=== PATIENT | male | born 1960 | race Caucasian/White ===

== ENCOUNTER → 2016-08-06 | Outpatient (CLI) | payer BC ==
[~2016-08-06] MED LIST: CATHETER FLUSH 10 ML SYR IV PRN; CLAR500T8 PO; IOHEXOL 350 MG/ML 100 ML (OMNIPAQUE 350) VIAL IV ONE; LOSA50TA6 PO; MTF500T PO; NS 100 ML (IVPB) BAG IV ONE
[2016-08-06 12:09] LABS: BASOPHILS # (AUTO) 0.1 10^3/uL (0.0-0.1); BASOPHILS % (AUTO) 2 % (0-10); EOSINOPHILS # (AUTO) 0.2 10^3/uL (0.0-0.3); EOSINOPHILS % (AUTO) 2 % (0-10); LYMPHOCYTES # (AUTO) 2.7 X 10^3 (1.0-4.0); LYMPHOCYTES % (AUTO) 33 % (12-44); MEAN CORPUSCULAR HEMOGLOBIN 30 PG (25-34); MEAN CORPUSCULAR HGB CONC 34 G/DL (32-36); MEAN CORPUSCULAR VOLUME 90 FL (80-99); MEAN PLATELET VOLUME 10.4 FL (7.4-10.4); MONOCYTES # (AUTO) 0.5 X 10^3 (0.0-1.0); MONOCYTES % (AUTO) 7 % (0-12); NEUTROPHILS # (AUTO) 4.6 X 10^3 (1.8-7.8); NEUTROPHILS % (AUTO) 57 % (42-75); PLATELET COUNT 255 10^3/uL (130-400); RED BLOOD COUNT 4.81 10^6/uL (4.35-5.85); RED CELL DISTRIBUTION WIDTH 13.1 % (10.0-14.5); WHITE BLOOD COUNT 8.1 10^3/uL (4.3-11.0)
[2016-08-06 12:27] LABS: ALANINE AMINOTRANSFERASE 32 U/L (0-55); ALBUMIN 4.3 G/DL (3.2-4.5); ANION GAP 9 MMOL/L (5-14); ASPARTATE AMINO TRANSFERASE 50 U/L (5-34); BILIRUBIN,TOTAL 0.5 MG/DL (0.1-1.0); BLOOD UREA NITROGEN 15 MG/DL (7-18); BUN/CREATININE RATIO 15; CARBON DIOXIDE 21 MMOL/L (21-32); CHLORIDE 108 MMOL/L (98-107); GFR ESTIMATED > 60; GLUCOSE 121 MG/DL (70-105); SODIUM 138 MMOL/L (135-145); TOTAL PROTEIN 6.9 G/DL (6.4-8.2)
--- NOTE | 2016-08-06 13:09 | Diagnostic Imaging Report ---
PROCEDURE: CT abdomen and pelvis with contrast. TECHNIQUE: Multiple contiguous axial images were obtained through the abdomen and pelvis after administration of intravenous contrast. INDICATION: Left-sided abdominal pain. Bloating. 100 mL of Omnipaque 350 is administered intravenously. FINDINGS: The lung bases demonstrate minimal atelectasis. The liver demonstrate diffuse steatosis. The gallbladder, the spleen, the pancreas, and adrenal glands appear unremarkable. The kidneys have symmetric enhancement and contrast excretion. There is no hydronephrosis. There is no free fluid or fluid collection in the abdomen or pelvis. There is moderate amounts of fecal material in the colon. Slightly prominent amount of a luminal fluid seen in the small bowel without significant fold or wall thickening, however. This could be normal versus mild enteritis related. The appendix is normal. The abdominal aorta is normal in caliber. No para-aortic significantly enlarged lymph node is seen. The osseous structures demonstrate degenerative changes in the hip joints and anterior and posterior fusion changes at the L4/L5 level. IMPRESSION: 1. Moderate amounts of fecal material in the colon. 2. Prominent amount of luminal fluid within small bowel loops without dilatation or wall thickening. In the appropriate clinical setting, this may correlate with mild enteritis. Dictated by: Dictated on workstation # [id number]
== END ==
LOC: RAD 11:41
PROVIDERS: ATTEND Family Medicine
DX: R10.32 Left lower quadrant pain (principal); K59.00 Constipation, unspecified
CPT/HCPCS: 36415; 74177; 80053; 85025

== ENCOUNTER → 2017-03-13 | Outpatient (CLI) | payer BC ==
[~2017-03-13] MED LIST changes: -CATHETER FLUSH 10 ML SYR IV PRN; -IOHEXOL 350 MG/ML 100 ML (OMNIPAQUE 350) VIAL IV ONE; -NS 100 ML (IVPB) BAG IV ONE
--- NOTE | 2017-03-13 09:46 | Diagnostic Imaging Report ---
CLINICAL INDICATION: Patient with neck pain and headaches x1 month. Patient has left arm pain off and on with history of symptoms 1 and 1/2-2 years. EXAM: MRI of the cervical spine performed without IV contrast. Sequences include sagittal T2, sagittal T1, sagittal STIR, sagittal T2 fat-sat, and axial T2. COMPARISON: MRI of the cervical spine dated 05/23/2015. FINDINGS: There are interval postop changes to the cervical spine with placement of C6-C7 anterior cervical interbody fusion. There is no fluid collection or MRI evidence of complication seen. Limited visualization of the posterior fossa is unremarkable. Cervical spinal cord has normal cord caliber and signal. There is no acute cervical spine fracture. There is slight high T2 signal involving the C5-C6, C6-C7, and C7-T1 endplate regions suspected to represent Modic type I degenerative signal changes, there may also be a component of hardware artifact. Otherwise, cervical spine shows no significant abnormal signal. There are cervical spine degenerative spurs and facet arthropathy seen. There is no significant paraspinal soft tissue abnormality. C1-C2: Unremarkable. C2-C3: Unremarkable. C3-C4: Stable small left paracentral/subarticular disc spur which causes stable moderate to severe left narrowing. There is no significant central spinal canal or right neural foramen narrowing. C4-C5: Unremarkable. C5-C6: There is stable grade 1 retrolisthesis of C5 on C6. There is a diffuse disc bulge with stable hypertrophic disc spurs seen posteriorly and bilateral uncinate spurs. There is stable mild ligamentum flavum buckling and bilateral facet arthropathy. There is stable severe central canal narrowing. There is stable at least moderate right neural foramen narrowing and severe left neural foramen narrowing. C6-C7: There are interval postop changes with treatment of the previously seen diffuse disc bulge with posterior disc herniation. There is also decrease in the ligamentum flavum buckling. There is minimal posterior vertebral body prominence and minimal ligamentum flavum buckling. There is moderate central canal narrowing which has improved compared to the prior study where severe narrowing was previously seen. There is stable severe bilateral neural foramen narrowing. C7-T1: Unremarkable. IMPRESSION: 1: Interval postop changes with C6-C7 anterior cervical disc fusion with decreased central canal narrowing, treatment of the previously seen disc herniation, and decreased ligamentum flavum buckling. There continues to be moderate central canal narrowing due to posterior vertebral body prominence and mild ligamentum flavum buckling. There is stable severe bilateral neural foramen narrowing. 2: There is stable severe C5-C6 central spinal canal narrowing, grade 1 retrolisthesis of C5 on C6 and moderate right neural foramen narrowing and severe left neural foramen narrowing. 3: Stable small C3-C4 left paracentral/subarticular disc spur which causes moderate to severe left neural foramen narrowing. Dictated by: Dictated on workstation # [id number]
== END ==
LOC: RAD 08:40
PROVIDERS: ATTEND Physician Assistant
DX: M48.02 Spinal stenosis, cervical region (principal); M43.12 Spondylolisthesis, cervical region; M54.81 Occipital neuralgia; Z98.1 Arthrodesis status
CPT/HCPCS: 72141

== ENCOUNTER 2017-06-06 12:15 | Outpatient (CLI) | payer MEDICARE, OTHER ==
[~2017-06-06] VITALS: Ht 177.8 cm; Wt 90.7 kg
[2017-06-06] MEDS ORDERED: DEXAMETHASONE 10 MG/ML (DECADRON) 1 ML VIAL ONE (12:19)
[2017-06-06 12:28] VITALS: BP 144/92
[2017-06-06 12:41] VITALS: BP 143/87
== END 2017-06-06 12:45 ==
LOC: CARD 12:15
PROVIDERS: ATTEND Pain Medicine Interventional Pain Medicine
DX: M54.12 Radiculopathy, cervical region (principal); I10 Essential (primary) hypertension; E11.9 Type 2 diabetes mellitus without complications; Z79.84 Long term (current) use of oral hypoglycemic drugs; Z79.899 Other long term (current) drug therapy
CPT/HCPCS: 62321

== ENCOUNTER → 2017-08-01 | Outpatient (CLI) | payer MEDICARE, OTHER ==
[~2017-08-01] VITALS: Ht 177.8 cm; Wt 90.7 kg
[~2017-08-01] MED LIST changes: +DEXAMETHASONE 10 MG/ML (DECADRON) 1 ML VIAL ONE
[2017-08-01 13:27] VITALS: BP 146/80
[2017-08-01 13:52] VITALS: BP 124/87
--- NOTE | 2017-08-01 18:20 | OPERATIVE REPORT ---
DATE OF SERVICE: 08/01/2017 DIAGNOSIS: Cervical radiculopathy. PROCEDURE: Fluoroscopic guided interlaminar epidural steroid injection. C7-T1 epidural steroid injection. PROCEDURE IN DETAIL: After obtaining informed consent from the patient, the patient's chart was reviewed. The patient was then brought to the procedure room and placed in the prone position. A timeout was performed. The back was prepped with antiseptic solution and under fluoro guidance, the patient's lumbar spine was identified at the level of C7-T1. The C7-T1 vertebra was identified with fluoro guidance and approximately 2 mL of 1.5% lidocaine solution was used to anesthetize the skin directly down to the pedicle of the C7-T1 and under fluoroscopic guidance, the tract was anesthetized up to the interlaminar space and the ligamentum flavum. This needle was withdrawn. Then, a 20-gauge 3.5 inch Tuohy needle was then directed following the same tract that was anesthetized with the spinal needle. Using loss of resistance, the epidural space was identified and then the syringe was switched for contrast solution which was injected, approximately 1 mL. After secondary confirmation of epidural access, another syringe was placed and 80 mg of Depo-Medrol was injected. The Tuohy needle was then flushed out with approximately 2 mL of the normal saline used from the loss of resistance syringe. Band-Aids were applied to all the procedure sites. The patient tolerated the procedure well and was taken to the recovery room in stable condition. COMPLICATIONS: None. Job ID: [id number] DocumentID: [id number] Dictated Date: 08/01/2017 14:04:18 Forestry Foreman Date: 08/01/2017 18:19:52 Dictated By: SHEY CAVAZOS DO
== END ==
LOC: CARD 12:39
PROVIDERS: ATTEND Pain Medicine Interventional Pain Medicine
DX: M54.81 Occipital neuralgia (principal)
CPT/HCPCS: 62321

== ENCOUNTER → 2019-03-14 | Outpatient (CLI) | payer MEDICARE ==
[~2019-03-14] MED LIST changes: -DEXAMETHASONE 10 MG/ML (DECADRON) 1 ML VIAL ONE
[2019-03-14 07:24] LABS: BASOPHILS # (AUTO) 0.1 10^3/uL (0.0-0.1); BASOPHILS % (AUTO) 2 % (0-10); EOSINOPHILS # (AUTO) 0.2 10^3/uL (0.0-0.3); EOSINOPHILS % (AUTO) 3 % (0-10); HEMATOCRIT 42 % (40-54); HEMOGLOBIN 14.5 G/DL (13.3-17.7); LYMPHOCYTES % (AUTO) 43 % (12-44); MEAN CORPUSCULAR HEMOGLOBIN 30 PG (25-34); MEAN CORPUSCULAR HGB CONC 34 G/DL (32-36); MEAN CORPUSCULAR VOLUME 87 FL (80-99); MEAN PLATELET VOLUME 9.8 FL (7.4-10.4); MONOCYTES # (AUTO) 0.4 X 10^3 (0.0-1.0); MONOCYTES % (AUTO) 5 % (0-12); NEUTROPHILS # (AUTO) 3.3 X 10^3 (1.8-7.8); NEUTROPHILS % (AUTO) 48 % (42-75); PLATELET COUNT 256 10^3/uL (130-400)
[2019-03-14 07:56] LABS: ALANINE AMINOTRANSFERASE 9 U/L (0-55); ALBUMIN 4.2 GM/DL (3.2-4.5); ALKALINE PHOSPHATASE 88 U/L (40-136); BILIRUBIN,TOTAL 0.4 MG/DL (0.1-1.0); BUN/CREATININE RATIO 16; CALCIUM 8.8 MG/DL (8.5-10.1); CARBON DIOXIDE 20 MMOL/L (21-32); CHLORIDE 109 MMOL/L (98-107); CHOLESTEROL 146 MG/DL (< 200); CREATININE SERUM 0.98 MG/DL (0.60-1.30); GFR ESTIMATED > 60; GLUCOSE 139 MG/DL (70-105); HDL CHOLESTEROL 52 MG/DL (40-60); SODIUM 140 MMOL/L (135-145); TRIGLYCERIDES 157 MG/DL (<150); VLDL CHOLESTEROL 31 MG/DL (5-40)
== END ==
LOC: LAB 07:03
PROVIDERS: ATTEND Family Medicine
DX: E11.9 Type 2 diabetes mellitus without complications (principal); E78.5 Hyperlipidemia, unspecified; I10 Essential (primary) hypertension; R53.83 Other fatigue
CPT/HCPCS: 36415; 80053; 80061; 83036; 85025

== ENCOUNTER → 2019-12-25 | Outpatient (CLI) | payer MEDICARE ==
[2019-12-25 06:57] LABS: BASOPHILS # (AUTO) 0.2 10^3/uL (0.0-0.1); BASOPHILS % (AUTO) 2 % (0-10); EOSINOPHILS # (AUTO) 0.3 10^3/uL (0.0-0.3); EOSINOPHILS % (AUTO) 3 % (0-10); HEMATOCRIT 46 % (40-54); HEMOGLOBIN 15.1 g/dL (13.3-17.7); LYMPHOCYTES # (AUTO) 3.2 10^3/uL (1.0-4.0); LYMPHOCYTES % (AUTO) 41 % (12-44); MEAN CORPUSCULAR HEMOGLOBIN 30 pg (25-34); MEAN CORPUSCULAR HGB CONC 33 g/dL (32-36); MEAN CORPUSCULAR VOLUME 93 fL (80-99); MONOCYTES # (AUTO) 0.4 10^3/uL (0.0-1.0); MONOCYTES % (AUTO) 5 % (0-12); NEUTROPHILS # (AUTO) 3.8 10^3/uL (1.8-7.8); NEUTROPHILS % (AUTO) 48 % (42-75); PLATELET COUNT 260 10^3/uL (130-400); WHITE BLOOD COUNT 7.8 10^3/uL (4.3-11.0)
[2019-12-25 07:02] LABS: ALBUMIN 4.3 GM/DL (3.2-4.5); CHLORIDE 107 MMOL/L (98-107); POTASSIUM 4.1 MMOL/L (3.6-5.0); SODIUM 138 MMOL/L (135-145)
[2019-12-25 07:04] LABS: CALCIUM 8.9 MG/DL (8.5-10.1)
[2019-12-25 07:05] LABS: GLUCOSE 143 MG/DL (70-105); TOTAL PROTEIN 7.2 GM/DL (6.4-8.2)
[2019-12-25 07:06] LABS: CARBON DIOXIDE 21 MMOL/L (21-32)
[2019-12-25 07:07] LABS: BILIRUBIN,TOTAL 0.4 MG/DL (0.1-1.0)
[2019-12-25 07:08] LABS: ALKALINE PHOSPHATASE 86 U/L (40-136)
[2019-12-25 07:09] LABS: CREATININE SERUM 1.09 MG/DL (0.60-1.30); GFR ESTIMATED > 60
[2019-12-25 07:10] LABS: BUN/CREATININE RATIO 11
[2019-12-25 07:11] LABS: ALANINE AMINOTRANSFERASE 11 U/L (0-55)
--- NOTE | 2019-12-25 07:54 | Diagnostic Imaging Report ---
EXAMINATION: US Abdomen limited. TECHNIQUE: Multiple real-time grayscale images were obtained over the right upper quadrant in various projections. HISTORY: RUQ PAIN,DIARRHEA,FATIGUE COMPARISON: None available. FINDINGS: Pancreas: The pancreas is nonvisualized secondary to overlying bowel gas. Liver: Increased echogenicity of the liver and normal contour which can be seen with hepatic steatosis. No focal lesions are seen. The portal vein is patent with hepatopetal flow. Gallbladder and biliary tree: Gallbladder is normal without wall thickening, pericholecystic fluid, or sonographic Brown sign. There is no biliary ductal dilation. The common duct measures 0.6 cm. Right kidney: The right kidney is normal without hydronephrosis. Aorta and IVC: The visualized aorta is unremarkable. The IVC is nonvisualized secondary to overlying bowel gas. Fluid: No ascites is seen. IMPRESSION: 1. Increased echogenicity of the liver which may be seen with hepatic steatosis. 2. Otherwise unremarkable abdominal ultrasound. Dictated by: Dictated on workstation # [id number]
== END ==
LOC: RAD 06:44
PROVIDERS: ATTEND Family Medicine
DX: R10.11 Right upper quadrant pain (principal); R19.7 Diarrhea, unspecified; R53.83 Other fatigue
CPT/HCPCS: 36415; 76705; 80053; 85025

== ENCOUNTER → 2020-01-14 | Outpatient (CLI) | payer MEDICARE ==
[~2020-01-14] MED LIST changes: +IOHEXOL 350 MG/ML 100 ML (OMNIPAQUE 350) VIAL IV ONE
--- NOTE | 2020-01-14 09:20 | Diagnostic Imaging Report ---
EXAMINATION: CT Abdomen and Pelvis with intravenous contrast. TECHNIQUE: Multiple contiguous axial images were obtained through the abdomen and pelvis after the uneventful administration of intravenous contrast. All CT scans use one or more of the following dose optimizing techniques: automated exposure control, MA and/or KvP adjustment based on a patient size and exam type, or iterative reconstruction. HISTORY: Abdominal pain, diarrhea COMPARISON: 08/06/2016 FINDINGS: Limited views of the lower thorax are unremarkable. Liver is steatotic. Small cyst is seen in the central liver. No suspicious liver lesions are seen. There is no biliary ductal dilation. Gallbladder is normal. Pancreas is normal. Spleen is normal. Adrenal glands are normal. The kidneys are normal. There is no hydronephrosis. Urinary bladder is normal. Visualized bowel is normal in caliber without obstruction or inflammation. The appendix is normal. No free fluid or air. No abdominal or pelvic lymphadenopathy. Aorta is normal in caliber without aneurysm. There are no suspicious osseus lesions. History of fusion of lumbar spine is seen. IMPRESSION: 1. Hepatic steatosis, otherwise unremarkable exam. Dictated by: Dictated on workstation # [id number]
--- NOTE | 2020-01-14 12:25 | Diagnostic Imaging Report ---
Hepatobiliary scan with ejection fraction INDICATION: Abdominal pain This study was performed following administration of 5.35 mCi of Choletec. One can of Ensure was also administered. COMPARISON: There are no prior nuclear medicine studies available for comparison. The gallbladder ultrasound exam of 12/25/2019 failed to show any evidence for cholelithiasis or acute cholecystitis. The gallbladder was also felt to be unremarkable on the CT abdomen/pelvis exam of 01/14/2020. On this study, there is slightly delayed uptake of the radiotracer by the gallbladder. Normally, radiotracer is seen within the gallbladder at 30 minutes. However, on this exam, there is no accumulation of the radiotracer within the gallbladder until 35 minutes. This slight delay does raise the question of mild chronic cholecystitis. There is extension of the radiotracer into the small bowel indicating the ejection fraction is 78% (normal greater than 35%). IMPRESSION: 1. The slight delay in the accumulation of the radiotracer within the gallbladder does suggest there is an element of mild chronic cholecystitis present. Clinical follow up is recommended. 2. There is no evidence of obstruction of the common bile duct. 3. The ejection fraction is 78% and well within normal limits. Dictated by: Dictated on workstation # [id number]
== END ==
LOC: CARD 09:15
PROVIDERS: ATTEND Surgery
DX: K76.0 Fatty (change of) liver, not elsewhere classified (principal); R10.32 Left lower quadrant pain; R11.2 Nausea with vomiting, unspecified; R19.7 Diarrhea, unspecified
CPT/HCPCS: 74177; 78227; A9537